=== PATIENT | female | born 1990 | race African-American/Black ===

== ENCOUNTER 2019-06-13 20:53 | Inpatient (IN) ==
[2019-06-13] MEDS ORDERED: ONDANSETRON 4 MG/2 ML VIAL IV PRN (21:04)
[2019-06-13] MEDS ORDERED: BUTORPHANOL 2 MG/ML VIAL IV PRN (21:04)
[2019-06-13] MEDS ORDERED: MEPERIDINE 50 MG/1 ML VIAL IV PRN (21:04)
[2019-06-13 21:30] LABS: Basophils % 0.2 % (0.0-0.8); Eosinophils # 0.2 10*3/uL (0.0-0.87); Eosinophils % 1.8 % (0.00-10.9); Hematocrit 33.3 VOL% (35.7-47.0); Hemoglobin 9.9 GM/DL (12.0-16.0); Immature Granulocytes % 0.4 %; Immature Granulocytes Absolute 0.03 #; Lymphocytes % 36.6 % (21.3-54.2); Mean Corpuscular HGB Conc 29.7 GM/DL (32-36); Mean Corpuscular Volume 73.7 FL (87-102); Mean Platelet Volume 10.2 FL (9.6-12.0); Monocytes % 5.9 % (1.7-12.7); Neutrophils % 55.1 % (38.7-73.9); Platelet Count 279 T/CUMM (130-400); Red Blood Count 4.52 MC/CUMM (3.8-5.5); Red Cell Distribution Width 16.7 % (9.3-17.3); White Blood Count 8.3 T/CUMM (4-12)
[2019-06-13 21:50] LABS: Alanine Aminotransferase 18 U/L (13-56); Albumin 2.7 G/DL (3.4-5.0); Alkaline Phosphatase 175 U/L (45-117); Aspartate Amino Transferase 21 U/L (0-37); Bilirubin,Total < 0.39 MG/DL (0.2-1.0); Blood Urea Nitrogen 5 MG/DL (7-18); Calcium 8.9 MG/DL (8.5-10.1); Estimated Glom Filtration Rate 139 ML/MIN; Glucose 116 MG/DL (74-106); Total Protein 7.7 G/DL (6.4-8.3)
[2019-06-14] MEDS ORDERED: OXYTOCIN/LR 20 UNIT/1,000 ML BAG IV SCH (07:00)
[2019-06-14] MEDS: LACTATED RINGERS 1,000 ML IV SCH ×2 (07:11→10:42)
[2019-06-14] MEDS ORDERED: PROMETHAZINE 25 MG/1 ML VIAL IM ONE (09:37)
[2019-06-14] MEDS ORDERED: hydrOXYzine HCL 25 MG/1 ML VIAL IM PRN (09:37)
[2019-06-14] MEDS ORDERED: diphenhydrAMINE 50 MG/1 ML VIAL IV PRN ×2 (09:37)
[2019-06-14] MEDS ORDERED: ONDANSETRON 4 MG/2 ML VIAL IV ONE (09:37)
[2019-06-14] MEDS ORDERED: ePHEDrine 50 MG/ML AMP IV PRN (09:37)
[2019-06-14] MEDS ORDERED: FAMOTIDINE 20 MG/2 ML VIAL IV ONE (09:37)
[2019-06-14] MEDS ORDERED: CITRIC ACID/SODIUM CITRATE 30 ML UDCUP PO ONE (09:37)
[2019-06-14] MEDS ORDERED: NALOXONE 0.4 MG/ML VIAL IV PRN (09:37)
[2019-06-14] MEDS ORDERED: fentaNYL 2 MCG/ROPIV 0.2% EPID 100 ML EPIDURAL SCH (10:00)
[2019-06-14] MEDS ORDERED: CLINDAMYCIN INJ 900 MG in PREMIX 1 EACH IV ONE (16:36)
[2019-06-14] MEDS ORDERED: OXYTOCIN/LR 20 UNIT/1,000 ML BAG IV ONE (16:37)
[2019-06-14] MEDS ORDERED: miSOPROStoL 200 MCG TABLET ONE (17:08)
[2019-06-14] MEDS ORDERED: CARBOPROST TROMETHAMINE 250 MCG/ML AMP IM ONE ×2 (17:08→17:20)
[2019-06-14] MEDS ORDERED: miSOPROStoL 200 MCG TABLET PO ONE (17:19)
[2019-06-14 17:26] LABS: Cord Venous Blood HCO3 19.5 MMOL/L; Cord Venous Blood PCO2 52.7 MMHG
[2019-06-14 17:37] LABS: Cord Venous Blood PO2 16.4
[2019-06-14] MEDS ORDERED: MORPHINE 10 MG/10 ML VIAL ONE (17:48)
[2019-06-14] MEDS ORDERED: fentaNYL 100 MCG/2 ML VIAL ONE (17:49)
[2019-06-14] MEDS ORDERED: LIDOCAINE MPF 2% /EPI 20 ML VIAL ONE (17:50)
[2019-06-14] MEDS ORDERED: SODIUM BICARBONATE 10 MEQ/10 ML SYRINGE IV ONE (17:57)
[2019-06-14] MEDS ORDERED: ACETAMINOPHEN 500 MG TABLET PO ONE (19:28)
[2019-06-14] MEDS: LEVOFLOXACIN INJ 500 MG in PREMIX 1 EACH IV SCH (19:46)
[2019-06-14] MEDS ORDERED: MEASLES/MUMPS/RUBELLA VACCINE 0.5 ML VIAL SUBCUT ONE (23:51)
[2019-06-14] MEDS ORDERED: WITCH HAZEL PADS 100/JAR TOP PRN (23:51)
[2019-06-14] MEDS ORDERED: HYDROCORTISONE 2.5% RECTAL CREAM 30 GM TUBE TOP PRN (23:51)
[2019-06-14] MEDS ORDERED: LANOLIN 50% CREAM 0.3 OZ TUBE TOP PRN (23:51)
[2019-06-14] MEDS ORDERED: ACETAMINOPHEN 325 MG TABLET PO PRN (23:51)
[2019-06-14] MEDS ORDERED: RHO(D) IMMUNE GLOBULIN 300 MCG SYRINGE IM ONE (23:51)
[2019-06-14] MEDS ORDERED: BISACODYL 10 MG SUPP RECTAL PRN (23:51)
[2019-06-14] MEDS ORDERED: DIPH/TET/ACEL PERT BOOSTER VACCINE 0.5 ML VIAL IM ONE (23:51)
[2019-06-14] MEDS ORDERED: GLUCAGON 1 MG VIAL IM PRN (23:51)
[2019-06-14] MEDS ORDERED: BENZOCAINE 20%/MENTHOL 0.5% SPRAY 56 GM CAN TOP PRN (23:51)
[2019-06-14] MEDS ORDERED: oxyCODONE/ACETAMINOPHEN 5-325 MG TABLET PO PRN ×2 (23:51)
[2019-06-15] MEDS ORDERED: DEXTROSE 10% 250 ML BAG IV PRN (00:05)
[2019-06-15 00:41] LABS: Bilirubin,Urine Negative (Negative); Blood, Urine Large mg/dL (Negative); Glucose,Urine (UA) Negative (Negative); Ketones,Urine 5 mg/dL (Negative); Mucus,Urine Occasional /LPF (Occasional); Nitrite,Urine Negative (Negative); Protein,Urine Negative; RBC,Urine 995 /HPF (0-4); Urine Specific Gravity 1.008 (1.001-1.035); Urine Urobilinogen < 2.0 EU/DL (0.2-1.0); WBC,Urine 19 /HPF (0-6)
[2019-06-15 00:42] LABS: Apearance,Urine Hazy (Clear)
[2019-06-15] MEDS: CLINDAMYCIN INJ 900 MG in PREMIX 1 EACH IV SCH ×3 (01:45→17:18)
[2019-06-15] MEDS: LACTATED RINGERS 1,000 ML IV SCH (04:55)
[2019-06-15 05:16] LABS: Basophils % 0.2 % (0.0-0.8); Eosinophils % 0.2 % (0.00-10.9); Hematocrit 26.6 VOL% (35.7-47.0); Hemoglobin 7.7 GM/DL (12.0-16.0); Immature Granulocytes % 0.5 %; Immature Granulocytes Absolute 0.06 #; Lymphocytes # 1.9 10*3/uL (1.4-4.0); Lymphocytes % 15.1 % (21.3-54.2); Mean Corpuscular HGB Conc 28.9 GM/DL (32-36); Mean Corpuscular Volume 75.6 FL (87-102); Mean Platelet Volume 9.9 FL (9.6-12.0); Monocytes % 6.2 % (1.7-12.7); Neutrophils % 77.8 % (38.7-73.9); Platelet Count 216 T/CUMM (130-400); Red Blood Count 3.52 MC/CUMM (3.8-5.5); Red Cell Distribution Width 16.7 % (9.3-17.3); White Blood Count 12.7 T/CUMM (4-12)
[2019-06-15 05:35] LABS: Hypochromasia 1+
[2019-06-15 05:36] LABS: Anisocytosis 1+; Microcytosis 1+; Ovalocytes Slight; Platelet Estimate Adequate; Polychromasia Slight
[2019-06-15] MEDS ORDERED: FERROUS SULFATE 325 MG TABLET PO SCH (09:00)
[2019-06-15] MEDS ORDERED: INFLUENZA VIRUS VACCINE 0.5 ML SYRINGE IM ONE (09:00)
[2019-06-15] MEDS: FERROUS SULFATE 325 MG TABLET PO SCH ×3 (09:10→20:04)
[2019-06-15] MEDS ORDERED: MAGNESIUM HYDROXIDE SUSP 30 ML UDCUP PO PRN (09:15)
[2019-06-15] MEDS: DOCUSATE SODIUM 100 MG CAPSULE PO SCH (20:04)
[2019-06-15] MEDS: IBUPROFEN 800 MG TABLET PO PRN (20:07)
[2019-06-15] MEDS: LEVOFLOXACIN INJ 500 MG in PREMIX 1 EACH IV SCH (20:08)
[2019-06-16] MEDS: CLINDAMYCIN INJ 900 MG in PREMIX 1 EACH IV SCH ×2 (00:34→09:27)
[2019-06-16] MEDS: IBUPROFEN 800 MG TABLET PO PRN (03:50)
[2019-06-16 07:57] VITALS: BP 97/61
[2019-06-16] MEDS: FERROUS SULFATE 325 MG TABLET PO SCH (09:28)
[2019-06-16] MEDS: DOCUSATE SODIUM 100 MG CAPSULE PO SCH (09:30)
== END 2019-06-16 10:55 | disposition home or self-care (01) | DRG 788 ==
LOC: N.LDOUT 20:53 → N.LD 20:56 → N.OB 06-14 23:46
PROVIDERS: ADMIT Specialist; ATTEND Specialist
PROC: LDCSECT (ICD-10-PCS; 2019-06-14 16:45)